=== PATIENT | male | born 1995 | race Caucasian/White ===

== ENCOUNTER 2016-06-30 19:00 | Emergency (ER) | payer OTHER | END 2016-06-30 20:54 | disposition home or self-care (01) | LOC: ER1 19:00 | DX: J06.9 Acute upper respiratory infection, unspecified (principal); F17.210 Nicotine dependence, cigarettes, uncomplicated; Z88.0 Allergy status to penicillin | CPT/HCPCS: 87081; 87880; 99283 ==

== ENCOUNTER 2020-05-19 14:27 | Emergency (ER) | payer SELFPAY ==
[2020-05-19] MEDS ORDERED: CLEOCIN HCL300 MG PO (15:16)
== END 2020-05-19 15:35 | disposition home or self-care (01) ==
LOC: ER1 14:27
DX: K04.7 Periapical abscess without sinus (principal); K02.9 Dental caries, unspecified; F17.200 Nicotine dependence, unspecified, uncomplicated; Z88.0 Allergy status to penicillin
CPT/HCPCS: 99282

== ENCOUNTER 2021-04-30 13:32 | Emergency (ER) | payer OTHER ==
[~2021-04-30 13:32] MED LIST: CLEOCIN HCL300 MG PO
== END 2021-04-30 14:55 | disposition home or self-care (01) ==
LOC: ER1 13:32
DX: J02.9 Acute pharyngitis, unspecified (principal); Z88.0 Allergy status to penicillin; F17.200 Nicotine dependence, unspecified, uncomplicated; Z20.822 Contact with and (suspected) exposure to COVID-19
CPT/HCPCS: 87081; 87880; 99283; U0003